=== PATIENT | male | born 1960 ===

== ENCOUNTER → 2023-06-16 09:37 | Outpatient (BNVA) | payer MEDICARE, BC, SELFPAY | PROVIDERS: Visit Provider Psychiatry & Neurology Neurology | DX: M54.16 Radiculopathy, lumbar region (principal); G95.9 Disease of spinal cord, unspecified; G25.0 Essential tremor; R20.0 Anesthesia of skin | CPT/HCPCS: 99215 ==

== ENCOUNTER → 2023-09-14 13:00 | Outpatient (BNVA) | payer MEDICARE, BC, SELFPAY | PROVIDERS: Visit Provider Psychiatry & Neurology Neurology | DX: M54.16 Radiculopathy, lumbar region (principal); G95.9 Disease of spinal cord, unspecified; G25.0 Essential tremor; R20.0 Anesthesia of skin | CPT/HCPCS: 95885; 95886; 95887; 95912; 99215 ==

== ENCOUNTER → 2024-03-01 10:06 | Outpatient (BNVA) | payer MEDICARE, BC, SELFPAY | PROVIDERS: Visit Provider Psychiatry & Neurology Neurology | DX: G95.9 Disease of spinal cord, unspecified (principal); G25.0 Essential tremor; M54.16 Radiculopathy, lumbar region; R20.0 Anesthesia of skin | CPT/HCPCS: 99214 ==

== ENCOUNTER 2024-03-24 00:35 | Outpatient (CLI) | payer MEDICARE, BC, SELFPAY ==
--- NOTE | 2024-03-24 07:15 | DI.MRI_ITS ---
Exam(s) MR CERVICAL SPINE WO EXAM: MR CERVICAL SPINE WO CLINICAL HISTORY: worsening cervical myelopathy symptoms,G95.9 TECHNIQUE: Multiplanar multisequence MRI of the cervical spine was performed without intravenous con trast. COMPARISON: MR MR LS SPINE WO CONTRAST from 12/10/2021 MR MR C SPINE WO CONTRAST from 12/10/2021 FINDINGS: BONES: Vertebral body heights are maintained. Alignment is normal. Bone marrow signal intensity is wi thin normal limits. Anterior fusion hardware noted at C5 through C7. CERVICAL CORD: Craniovertebral junction is unremarkable. The cervical cord is normal size and signal intensity. SOFT TISSUES: Unremarkable. C2-3: No disc herniation or bulge is identified. No evidence of neural foraminal narrowing. No signi ficant central canal stenosis. C3-4: No evidence of disc bulging or herniation. Small osteophytes projecting eccentrically toward t he left causing moderate neural foraminal narrowing. Mild left neural foraminal narrowing. Facet de generative changes also contribute. No significant central canal stenosis. C4-5: Moderate loss of disc height. Endplate osteophytes and mild concentric disc bulging. Mild effac ement of the anterior CSF space. No evidence of a impingement on the cord.. Facet degenerative caro es. Severe bilateral neural foraminal narrowing. No significant central canal stenosis. C5-6: Anterior fusion hardware no disc herniation or bulge is identified. No evidence of neural lanette inal narrowing. No significant central canal stenosis. C6-7: Anterior fusion hardware. No disc herniation or bulge is identified. No evidence of neural for aminal narrowing. No significant central canal stenosis. C7-T1: No disc herniation or bulge is identified. No evidence of neural foraminal narrowing. No signi ficant central canal stenosis. IMPRESSION: Normal cord signal. Anterior fusion from C5 through C7. Degenerative disc changes and facet degenerative changes cause bilateral neural foraminal narrowing a t C3-4 and C4-5. No evidence of disc herniation. DATA REPOSITORY:
== END 2024-03-24 00:55 ==
LOC: DI 00:35
PROVIDERS: Visit Provider Psychiatry & Neurology Neurology
DX: M48.02 Spinal stenosis, cervical region (principal); M99.61 Osseous and subluxation stenosis of intervertebral foramina of cervical region
CPT/HCPCS: 72141

== ENCOUNTER → 2024-04-26 08:39 | Outpatient (BNVA) | payer MEDICARE, BC, SELFPAY | PROVIDERS: Visit Provider Psychiatry & Neurology Neurology | DX: G25.0 Essential tremor (principal); M54.16 Radiculopathy, lumbar region; R20.0 Anesthesia of skin; G95.9 Disease of spinal cord, unspecified | CPT/HCPCS: 99214 ==

== ENCOUNTER → 2024-07-27 12:14 | Outpatient (BNVA) | payer MEDICARE, BC, SELFPAY | PROVIDERS: Visit Provider Psychiatry & Neurology Neurology | DX: G95.89 Other specified diseases of spinal cord (principal); G25.0 Essential tremor; M54.16 Radiculopathy, lumbar region; R20.0 Anesthesia of skin | CPT/HCPCS: 99215 ==

== ENCOUNTER → 2024-12-26 10:42 | Outpatient (BNVA) | payer MEDICARE, BC, SELFPAY | PROVIDERS: Visit Provider Psychiatry & Neurology Neurology | DX: G95.89 Other specified diseases of spinal cord (principal); G25.0 Essential tremor; M54.16 Radiculopathy, lumbar region; R20.0 Anesthesia of skin | CPT/HCPCS: 99214 ==